=== PATIENT | male | born 1950 | race Caucasian/White ===

== ENCOUNTER 2018-11-30 09:33 | Emergency (ER) | payer MEDICARE, BC ==
--- OUTSIDE RECORDS SUMMARY | 2018-11-30 10:07 | XMS REPORT | Continuity of Care Document ---
:1950 External Reference #:[id number] Author Name Mariposa King MD Address [address] [facility] [place] [address] Care Team Providers Name Role Phone Mariposa King MD Care Team Information Pastoral Assistant Unavailable Mariposa King MD Primary Care Physician Unavailable Payers Date Identification Numbers Payment Provider Subscriber Policy Number: [id number] Medicare Juan Singleton JR PayID: [id number] [address] [place] [address] Effective: 2014 Policy Number: [id number] [facility] Juan Singleton JR Group Number: [id number] [address] [address] PayID: [id number] BARBY Boyd [id number] Effective: 2015 Policy Number: [id number] Medicare Juan Singleton JR Expires: 2018 PayID: [id number] [address] [place] [address] Advance Directives Description No Information Available Problems Active Problems Provider Date Conduction disorder of the heart Mili Rodriguez ANP Onset: 01/14/2013 Pulmonary embolism Mili Rodriguez ANP Onset: 01/14/2013 History of malignant neoplasm of tongue Mariposa King MD Onset: 08/17/2015 Chronic lymphoid leukemia in remission Mariposa King MD Onset: 08/17/2015 Hypothyroidism Mariposa King MD Onset: 08/17/2015 Hypertensive heart disease without Mariposa King MD Onset: 04/25/2016 congestive heart failure Thrombophilia due to antiphospholipid Mariposa King MD Onset: 04/25/2016 antibody Nephropathy due to secondary diabetes Mariposa King MD Onset: 04/25/2016 mellitus Pure hypercholesterolemia Mariposa King MD Onset: 04/25/2016 Nocturia Mariposa King MD Onset: 04/25/2016 Solitary nodule of lung Mariposa King MD Onset: 10/24/2016 Edema Shawn Larson M.D., Onset: 04/29/2017 [facility] Other hemorrhoids Mariposa King MD Onset: 10/23/2017 Gouty arthritis of the ankle and/or foot Mariposa King MD Onset: 11/27/2017 Bradycardia Mariposa King MD Onset: 04/28/2018 Neoplasm of uncertain behavior of skin Mariposa King MD Onset: 04/28/2018 Gout Mariposa King MD Onset: 06/27/2018 Type 2 diabetes mellitus Mariposa King MD Onset: 07/23/2018 Ulcer of heel Mariposa King MD Onset: 07/23/2018 Inactive Problems Benign essential hypertension Mili Rodriguez ANP Onset: 01/14/2013 Inactive: 04/25/2016 Dyspnea Mili Rodriguez, ANP Onset: 01/14/2013 Inactive: 04/25/2016 Preoperative cardiovascular Shawn Larson M.D., [facility] Onset: 12/27/2014 examination Inactive: 04/25/2016 Essential hypertension Mariposa King MD Onset: 08/17/2015 Inactive: 04/25/2016 Type 2 diabetes mellitus Mariposa King MD Onset: 08/17/2015 Inactive: 04/25/2016 Resolved Problems Diarrhea Mariposa King MD Onset: 09/28/2015 Resolved: 04/25/2016 Urgent desire to urinate Mariposa King MD Onset: 12/21/2015 Resolved: 04/25/2016 Malaise and fatigue Mariposa King MD Onset: 12/21/2015 Resolved: 04/25/2016 Hyperlipidemia Mili Rodriguez ANP Onset: 01/14/2013 Resolved: 04/28/2018 Malignant tumor of base of tongue Mariposa King MD Onset: 09/28/2015 Resolved: 04/28/2018 Acute bronchitis Mariposa King MD Onset: 10/24/2016 Resolved: 04/28/2018 Arthralgia of the pelvic region and thigh Mariposa King MD Onset: 2016 Resolved: 04/28/2018 Cellulitis of lower leg Mariposa King MD Onset: 10/04/2017 Resolved: 04/28/2018 Contact dermatitis Mariposa King MD Onset: 10/23/2017 Resolved: 04/28/2018 Otalgia Mariposa King MD Onset: 11/27/2017 Resolved: 04/28/2018 Primary cardiomyopathy Mili Rodriguez ANP Onset: 01/14/2013 Resolved: 04/28/2018 Family History Date Family Member(s) Observation Comments Father Non Contributory Father 91 Father due to Pancreatic Cancer () Mother due to Congestive Heart Failure () - 85 Mother Heart Disease Children 2 Siblings 5 First Sister CLL First Sister due to subarachnoid hemmorhage () Social History Type Date Description Comments Sex Unknown Education Highest level completed, 2 years of college Marital Status Lives With Home Environment Lives With and pets Diet Patient follows no dietary restrictions Pets 3 cats 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 Work Status Retired ADL's/IADL's Independent with all ADL's ADL's/IADL's Independent with all IADL's Hobbies model airplanes, model trains Hobbies Reading Hobbies Camping Tobacco Use Start: Unknown End: Quit at age 42 Unknown Cigarette Use Pack Years - 10 Smoking Status Reviewed: 11/10/18 Quit at age 42 ETOH Use Denies alcohol use Tobacco Use Start: Unknown End: Patient is a former Unknown smoker Recreational Drug Use Denies Drug Use Guns in Home No Allergies, Adverse Reactions, Alerts Active Allergies Reaction Severity Comments Date NKDA 06/08/2010 Contrast Dye 09/28/2015 Medications Active Medications SIG Qnty Indications Ordering Date Provider Allopurinol 1 by mouth 2x/day 90tabs Mariposa King, 06/27/2018 100mg Tablets Blood Glucose Test test sugars 3-4x 200units Mariposa King, 12/20/2017 daily as instructed Strips Pen [place] use for insulin pen 100units Mariposa King, 12/20/2017 32G X 4 injection once mm Misc daily Proair HFA 2 inhalations every 8.500gm J40 Mariposa King, 06/19/2017 4 hours as needed 108(90Base) mcg/Act for wheezing, sob Aerosol or persistent cough Benazepril HCL 1/2 by mouth every 90tabs Mariposa King, 10/24/2016 40mg day MD Tablets Lantus Solostar 22 units AT Bedtime 30ml Mariposa King, 12/21/2015 MD 100Unit/ML Solution Pen-Inject Lovastatin take one tablet by 90tabs Mariposa King, 20mg mouth once daily MD Tablets Glyburide 1/2 po twice a day Unknown 5mg Tablets Levothyroxine Sodium take one tablet by 90tabs Mariposa King, mouth once daily MD 137mcg Tablets Vitamin D 1 by mouth twice a Unknown (Cholecalciferol) day 2000U Capsules Lovenox 1 subcutaneous q 12 10units Unknown 100mg/ml hours Solution History Medications Sulfamethoxazole/Trimethoprim one tablet 14tabs N30.01 [place], 07/09/2018 DS twice a day Dg, - 800-160mg Tablets x 7 days 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 Colchicine 1/2 To 1 30tabs Mariposa King, 06/12/2018 0.6mg Tablets tab by MD - mouth Per 09/30/2018 Day Ciclopirox Olamine apply to 60ml Mariposa King, 04/28/2018 0.77% Suspension affected MD - 2x/day 07/09/2018 after cleansing and drying area Sulfamethoxazole/Trimethoprim 1 by mouth 20tabs Mariposa King, 2017 DS twice a day MD - Unknown 800-160mg Tablets Colcrys Mariposa King, 11/27/2017 0.6mg Tablets MD - 11/27/2017 Prednisone 2 tabs once 60tabs Mariposa King, 11/26/2017 20mg Tablets a day until MD - pain 06/12/2018 decreases, the one tab a day for 7 more days Glyburide 2 tabs 360tabs Mariposa King, 10/23/2017 5mg Tablets twice a day MD - Unknown Losartan Potassium 1 by mouth 30tabs Mariposa King, 10/23/2017 25mg Tablets every day MD - mdd 1 11/27/2017 Sulfamethoxazole/Trimethoprim 1 by mouth 20tabs L03.119 Mariposa King, DS twice a day MD - 800-160mg Tablets 10/23/2017 Cefdinir 1 by mouth 20caps J40 Mariposa King, 06/19/2017 300mg Capsules twice a day MD - 10/04/2017 Lasix 20mg 1-2 by 180tabs Mariposa King, 04/29/2017 Tablets mouth every MD - day 06/12/2018 depending on amout of edema Amoxicillin 1 by mouth 20tabs J20.9 Mariposa King, 10/24/2016 875mg Tablets twice a day MD - 10/24/2016 Amoxicillin 1 tab 30tabs J20.9 Mariposa King, 10/24/2016 500mg Tablets 3x/day MD - 04/24/2017 Diphenoxylate-Atropine 2 by mouth 120tabs Mariposa King, 09/28/2015 2.5-0.025mg Tablets up to 4 MD - times a day 12/21/2015 as needed for diarrhea.Re [facility] #: [id number] Pravastatin Sodium Take One 30tabs 272.4 Praveen Vogel, 11/06/2012 20mg Tablets Tablet By , PhD - Unknown Mouth Every Day AT Bedtime Benazepril HCL 1 by mouth Unknown 20mg Tablets every day - 10/24/2016 Lantus 18 units Unknown 100U/ML once a day - 12/21/2015 Lantus 17 units Unknown 100Unit/ML Solution qpm - 08/17/2015 Metformin HCL ER 1 by mouth Unknown 500mg Tablets ER 24HR every day - Unknown Benadryl 1 by mouth Unknown 25mg Tablets as needed - 08/17/2015 Vitamin D3 1 po qd- Unknown 1000Unit Capsules prn - 08/17/2015 Cinnamon 1 po qd Unknown 500mg Capsules - 08/17/2015 Guaifenesin 1 to 2 tabs 30tabs Unknown 200mg Tablets po q 4 to 6 - Unknown hours as needed for cough Benazepril HCL one by 90tabs Mariposa King, 40mg Tablets mouth every MD - Unknown day Januvia 1 po qd 30tabs Unknown 100mg Tablets - Unknown Fosinopril Sodium 1 po qd 90tabs Unknown 40mg Tablets - Unknown Levitra 1 po prn Unknown 20mg Tablets - Unknown Ventolin HFA prn Unknown 108(90Base) mcg/ac Aerosol - 08/17/2015 Glyburide 1 by mouth 180tabs Mariposa King, 5mg Tablets twice a day MD - 10/23/2017 Simvastatin 1 po qd 90tabs Unknown 40mg Tablets - Unknown Actos 15mg 1 po qd Unknown Tablets - Unknown Immunizations CPT Code Status Date Vaccine Lot # [id number] Given 04/25/2016 Pneumococcal Conjugate Vaccine 13 Valent For [id number] Intramuscular Use [id number] Given 10/06/2010 Tdap injection Vital Signs Date Vital Result Comment 11/10/2018 8:18am BP Systolic Sitting Left Arm 132 mmHg BP Diastolic Sitting Left Arm 82 mmHg Heart Rate 62 /min Respiratory Rate 18 /min Height 74 inches 6'2" Weight 318.00 lb BMI (Body Mass Index) 40.8 kg/m2 BSA (Body Surface Area) 2.65 m2 [place] body weight in kilograms 86 kg 10/15/2018 9:26am BP Systolic 112 mmHg BP Diastolic 55 mmHg Body Temperature 96.4 F Heart Rate 60 /min Height 74 inches 6'2" Weight 315.00 lb BMI (Body Mass Index) 40.4 kg/m2 BSA (Body Surface Area) 2.64 m2 [place] body weight in kilograms 86 kg O2 % BldC Oximetry 99 % 09/30/2018 3:57pm BP Systolic 128 mmHg BP Diastolic 82 mmHg Body Temperature 96.8 F Heart Rate 60 /min Respiratory Rate 20 /min Height 72 inches 6'0" Weight 315.00 lb BMI (Body Mass Index) 42.7 kg/m2 BSA (Body Surface Area) 2.58 m2 [place] body weight in kilograms 81 kg 07/23/2018 5:51pm BP Systolic Sitting Left Arm 130 mmHg BP Diastolic Sitting Left Arm 72 mmHg Body Temperature 97.6 F Heart Rate 66 /min Respiratory Rate 18 /min Height 72 inches 6'0" Weight 304.00 lb BMI (Body Mass Index) 41.2 kg/m2 BSA (Body Surface Area) 2.55 m2 [place] body weight in kilograms 81 kg 07/10/2018 3:12pm BP Systolic 120 mmHg BP Diastolic 71 mmHg Body Temperature 97.6 F Heart Rate 47 /min Respiratory Rate 20 /min Height 72 inches 6'0" Weight 303.00 lb BMI (Body Mass Index) 41.1 kg/m2 BSA (Body Surface Area) 2.54 m2 [place] body weight in kilograms 81 kg O2 % BldC Oximetry 100 % 07/09/2018 11:51am BP Systolic Sitting Left Arm 128 mmHg BP Diastolic Sitting Left Arm 74 mmHg Body Temperature 98.1 F Heart Rate 60 /min Respiratory Rate 18 /min Height 73 inches 6'1" Weight 307.00 lb BMI (Body Mass Index) 40.5 kg/m2 BSA (Body Surface Area) 2.58 m2 [place] body weight in kilograms 83 kg O2 % BldC Oximetry 98 % 06/27/2018 11:36am BP Systolic Sitting Resting Right Arm 124 mmHg BP Diastolic Sitting Resting Right Arm 68 mmHg Body Temperature 97.6 F Heart Rate 76 /min Respiratory Rate 18 /min Height 73 inches 6'1" Weight 306.00 lb BMI (Body Mass Index) 40.4 kg/m2 BSA (Body Surface Area) 2.58 m2 [place] body weight in kilograms 83 kg 06/12/2018 4:38pm BP Systolic 127 mmHg BP Diastolic 62 mmHg Body Temperature 97.6 F Heart Rate 47 /min Height 73 inches 6'1" Weight 304.00 lb BMI (Body Mass Index) 40.1 kg/m2 BSA (Body Surface Area) 2.57 m2 [place] body weight in kilograms 83 kg Pain Level 7 Rt Foot 04/28/2018 8:54am BP Systolic 138 mmHg BP Diastolic 78 mmHg Body Temperature 96.6 F Heart Rate 54 /min Respiratory Rate 20 /min Height 73 inches 6'1" Weight 312.00 lb BMI (Body Mass Index) 41.2 kg/m2 BSA (Body Surface Area) 2.60 m2 [place] body weight in kilograms 83 kg 01/13/2018 9:23am BP Systolic Sitting Right Arm 112 mmHg BP Diastolic Sitting Right Arm 64 mmHg Heart Rate 38 /min Respiratory Rate 16 /min Height 73 inches 6'1" Weight 309.00 lb BMI (Body Mass Index) 40.8 kg/m2 BSA (Body Surface Area) 2.59 m2 [place] body weight in kilograms 83 kg O2 % BldC Oximetry 98 % Room air 11/27/2017 9:39am BP Systolic 148 mmHg BP Diastolic 92 mmHg Body Temperature 97.2 F Heart Rate 55 /min Respiratory Rate 18 /min Height 73 inches 6'1" Weight 325.00 lb BMI (Body Mass Index) 42.9 kg/m2 BSA (Body Surface Area) 2.64 m2 [place] body weight in kilograms 83 kg O2 % BldC Oximetry 96 % 10/23/2017 8:30am BP Systolic Sitting Left Arm 128 mmHg BP Diastolic Sitting Left Arm 72 mmHg Heart Rate 72 /min Respiratory Rate 18 /min Height 73 inches 6'1" Weight 326.00 lb BMI (Body Mass Index) 43.0 kg/m2 BSA (Body Surface Area) 2.65 m2 [place] body weight in kilograms 83 kg 10/04/2017 2:27pm BP Systolic 89 mmHg BP Diastolic 54 mmHg BP Systolic Sitting Right Arm 150 mmHg BP Diastolic Sitting Right Arm 70 mmHg BP Systolic Sitting Left Arm 129 mmHg BP Diastolic Sitting Left Arm 84 mmHg Body Temperature 95.8 F Heart Rate 74 /min Respiratory Rate 17 /min Height 73 inches 6'1" Weight 334.00 lb BMI (Body Mass Index) 44.1 kg/m2 BSA (Body Surface Area) 2.68 m2 [place] body weight in kilograms 83 kg 06/19/2017 10:25am BP Systolic Sitting Right Arm 132 mmHg BP Diastolic Sitting Right Arm 70 mmHg Body Temperature 96.5 F Heart Rate 45 /min Height 73 inches 6'1" Weight 320.00 lb BMI (Body Mass Index) 42.2 kg/m2 BSA (Body Surface Area) 2.63 m2 [place] body weight in kilograms 83 kg O2 % BldC Oximetry 96 % 04/29/2017 8:35am BP Systolic Sitting Left Arm 142 mmHg BP Diastolic Sitting Left Arm 61 mmHg Heart Rate 51 /min Respiratory Rate 16 /min Height 73 inches 6'1" Weight 324.00 lb BMI (Body Mass Index) 42.7 kg/m2 BSA (Body Surface Area) 2.64 m2 [place] body weight in kilograms 83 kg 04/24/2017 8:39am BP Systolic Sitting Left Arm 118 mmHg BP Diastolic Sitting Left Arm 60 mmHg Heart Rate 62 /min Height 73 inches 6'1" Weight 320.00 lb BMI (Body Mass Index) 42.2 kg/m2 BSA (Body Surface Area) 2.63 m2 [place] body weight in kilograms 83 kg 10/24/2016 8:30am BP Systolic Sitting Right Arm 138 mmHg BP Diastolic Sitting Right Arm 60 mmHg Body Temperature 98.9 F Heart Rate 56 /min Respiratory Rate 18 /min Height 73 inches 6'1" Weight 322.00 lb BMI (Body Mass Index) 42.5 kg/m2 BSA (Body Surface Area) 2.63 m2 08/23/2016 8:42am BP Systolic Sitting Right Arm 124 mmHg BP Diastolic Sitting Right Arm 82 mmHg Heart Rate 50 /min Respiratory Rate 16 /min Height 73 inches 6'1" Weight 327.00 lb BMI (Body Mass Index) 43.1 kg/m2 BSA (Body Surface Area) 2.65 m2 04/25/2016 9:05am BP Systolic Sitting Left Arm 126 mmHg BP Diastolic Sitting Left Arm 72 mmHg Heart Rate 70 /min Respiratory Rate 22 /min Height 73 inches 6'1" Weight 316.00 lb BMI (Body Mass Index) 41.7 kg/m2 BSA (Body Surface Area) 2.61 m2 [place] body weight in kilograms 83 kg 12/21/2015 8:39am BP Systolic 115 mmHg BP Diastolic 56 mmHg BP Systolic Sitting Left Arm 116 mmHg BP Diastolic Sitting Left Arm 93 mmHg Heart Rate 61 /min Height 74 inches 6'2" Weight 314.25 lb BMI (Body Mass Index) 40.3 kg/m2 BSA (Body Surface Area) 2.63 m2 11/03/2015 8:02am BP Systolic Sitting Right Arm 134 mmHg BP Diastolic Sitting Right Arm 62 mmHg Heart Rate 46 /min Respiratory Rate 16 /min Height 74 inches 6'2" Weight 314.00 lb BMI (Body Mass Index) 40.3 kg/m2 BSA (Body Surface Area) 2.63 m2 09/28/2015 1:05pm BP Systolic Sitting Left Arm 102 mmHg BP Diastolic Sitting Left Arm 64 mmHg Body Temperature 97.3 F Heart Rate 50 /min Respiratory Rate 18 /min Height 74 inches 6'2" Weight 301.00 lb BMI (Body Mass Index) 38.6 kg/m2 BSA (Body Surface Area) 2.59 m2 08/30/2015 8:57am BP Systolic Sitting Left Arm 154 mmHg BP Diastolic Sitting Left Arm 76 mmHg Heart Rate 51 /min Respiratory Rate 16 /min Height 74 inches 6'2" Weight 310.00 lb BMI (Body Mass Index) 39.8 kg/m2 BSA (Body Surface Area) 2.62 m2 08/17/2015 11:11am BP Systolic 129 mmHg BP Diastolic 71 mmHg Heart Rate 51 /min Respiratory Rate 18 /min Weight 311.25 lb 12/27/2014 2:43pm BP Systolic Sitting Right Arm 102 mmHg BP Diastolic Sitting Right Arm 58 mmHg Heart Rate 53 /min Respiratory Rate 16 /min Height 74.75 inches 6'2.75" Weight 309.00 lb BMI (Body Mass Index) 38.9 kg/m2 BSA (Body Surface Area) 2.63 m2 01/12/2013 3:30pm BP Systolic Sitting Right Arm 116 mmHg BP Diastolic Sitting Right Arm 72 mmHg Heart Rate 48 /min Irregular Respiratory Rate 16 /min Height 74.75 inches 6'2.75" Weight 310.00 lb BMI (Body Mass Index) 39.0 kg/m2 BSA (Body Surface Area) 2.64 m2 11/06/2012 8:41am BP Systolic Sitting Left Arm 122 mmHg BP Diastolic Sitting Left Arm 68 mmHg Heart Rate 58 /min Respiratory Rate 18 /min Height 74.75 inches 6'2.75" Weight 309.00 lb BMI (Body Mass Index) 38.9 kg/m2 BSA (Body Surface Area) 2.63 m2 05/05/2012 2:52pm BP Systolic Sitting Right Arm 128 mmHg BP Diastolic Sitting Right Arm 60 mmHg Heart Rate 64 /min Respiratory Rate 18 /min Height 74.75 inches 6'2.75" Weight 320.00 lb BMI (Body Mass Index) 40.3 kg/m2 03/25/2012 9:38am BP Systolic Sitting Right Arm 128 mmHg BP Diastolic Sitting Right Arm 66 mmHg Heart Rate 53 /min Respiratory Rate 20 /min Height 74.75 inches 6'2.75" Weight 327.00 lb BMI (Body Mass Index) 41.1 kg/m2 Results Test Date Facility Test Result H/L Range Note Basic Metabolic 11/10/2018 [facility] Glucose 192 mg/dL High 74-106 1 Panel [address] [place], [place] [id number] [phone] BUN 31 mg/dL High 7-18 Creatinine 1.6 mg/dL High 0.6-1.3 Glom Filtration Rate, Estimate 46 mL/min >60 If 56 mL/min >60 2 BUN/Creat 19.3 ratio Sodium 136 mmol/L N 136-145 Potassium 4.7 mmol/L N 3.5-5.1 Chloride 107 mmol/L N 98-107 Carbon Dioxide 25 mmol/L N 21-32 Anion Gap 4 mEq/L Low 8-16 Calcium 9.4 mg/dL N 8.5-10.1 Glycohemoglobin 11/10/2018 [facility] Glycohemoglobin 7.5 % High 4.2-6.[address] (A1c) [place], [place] [id number] [phone] eAG 169 mg/dL Laboratory test 11/10/2018 [facility] Uric Acid 7.2 mg/dL N 3.5-7.[address] [place], [place] [address] [phone] Urine Dipstick 11/10/2018 [facility] Ua Nitrite - Negative Ua Urobilinogen .2 0.2 - 1.0 E.U./dL Ua Protein - Negative Ua PH 6 Low 6.5-7.5 Ua Blood - Negative Ua Specific [place] 1.020 1.010-1.030 Ua Ketones - Negative Ua Bilirubin - Negative Ua Glucose - Negative Basic Metabolic Panel 10/02/[address] [facility] [address] Glucose 151 mg/dL High 74-[address] [place], [place] [id number] [phone] BUN 33 mg/dL High 7-18 Creatinine 1.8 mg/dL High 0.6-1.3 Glom Filtration Rate, Estimate 40 mL/min >60 If 49 mL/min >60 5 BUN/Creat 18.3 ratio Sodium 140 mmol/L N 136-145 Potassium 4.6 mmol/L N 3.5-5.1 Chloride 107 mmol/L N 98-107 Carbon Dioxide 27 mmol/L N 21-32 Anion Gap 6 mEq/L Low 8-16 Calcium 9.2 mg/dL N 8.5-10.1 CBC W/Automated Diff 10/02/2018 [facility] [address] White Blood 6.3 K/uL N 3.4-10.[address] [place] [address] [phone] Red Blood Count 4.71 M/uL N 4.20-5.80 Hemoglobin 14.2 gm/dL N 12.8-17.0 Hematocrit 43.3 % N 38.0-48.0 Mean Cell Volume 91.9 fl N 80.0-96.0 Mean Corpuscular HGB 30.1 pg N 27.0-33.0 Mean Corpuscular HGB Conc 32.8 g/dL N 31.7-36.0 Platelet Count 184 K/uL N 155-360 Red Cell Distri Width SD 45.3 fl N 36-51 Red Cell Distri Width %CV 13.3 % N 11.6-15.8 Mean Platelet Volume 9.6 fl N 6.6-10.6 Neut% 43.9 % N 33.0-73.0 Lymph % 42.5 % High 20.0-42.0 [place] % 8.6 % N 0.0-10.0 Eo% 4.1 % N 0.0-6.6 Bas% 0.6 % N 0.0-1.1 Immature Grans 0.3 % N 0.0-5.0 NRBC % 0.0 /100WBC < 10/ 100 WBC Neut# 2.76 K/uL N 1.8-7.0 Lymph # 2.68 K/uL N 1.0-4.0 [place] # 0.54 K/uL N 0.0-0.8 Eos # 0.26 K/uL N 0.0-0.5 Baso # 0.04 K/uL N 0.0-0.1 Immature Grans Absolute 0.02 K/uL NRBC # 0.00 K/uL Glycohemoglobin 10/02/[address] [facility] [address] Glycohemoglobin 6.8 % High 4.2-6.3 6 A1c [address] [facility] (A1c) [place], [place] [id number] [phone] eAG 148 mg/dL Laboratory test 10/02/[address] [facility] [address] Uric Acid 7.3 mg/dL High 3.5- 7.2 finding [address] [place] [address] [phone] Urine Dipstick 09/30/2018 [facility] Ua Color yellow Yellow Ua Clarity clear Clear Ua Leuko neg Negative Ua Nitrite neg Negative Ua Urobilinogen 0.2 0.2 - 1.0 E.U./dL Ua Protein neg Negative Ua PH 6.5 6.5-7.5 Ua Blood neg Negative Ua Specific [place] 1.010 1.010-1.030 Ua Ketones neg Negative Ua Bilirubin neg Negative Ua Glucose 500 High Negative Laboratory test 07/22/2018 [facility] Uric Acid 7.5 High 3.5-7.2 [address] mg/[place] [address] [phone] Glycohemoglobin 07/22/2018 [facility] Glycohemoglobin 8.2 % High 4.2-6.3 [address] (A1c) [place] [address] [phone] eAG 189 mg/dL Basic Metabolic Panel 07/22/2018 [facility] Glucose 95 mg/dL N 74-[address] [place] [address] [phone] BUN 24 mg/dL High 7-18 Creatinine 1.6 mg/dL High 0.6-1.3 Glom Filtration Rate, Estimate 46 mL/min >60 If 56 mL/min >60 9 BUN/Creat 15.0 ratio Sodium 140 mmol/L N 136-145 Potassium 4.8 mmol/L N 3.5-5.1 Chloride 108 mmol/L High 98-107 Carbon Dioxide 28 mmol/L N 21-32 Anion Gap 4 mEq/L Low 8-16 Calcium 9.6 mg/dL N 8.5-10.1 Urine Dipstick 07/09/2018 [facility] Ua Color pink Yellow Ua Clarity cloudy Clear Ua Leuko 2+ High Negative Ua Nitrite NEGATIVE Negative Ua Urobilinogen 0.2 Low 0.2 - 1.0 E.U./dL Ua Protein 2+ High Negative Ua PH 6.5 6.5-7.5 Ua Blood Large Negative Ua Specific [place] 1.015 1.010-1.030 Ua Ketones - Negative Ua Bilirubin - Negative Ua Glucose - Negative Urine Culture 07/09/2018 [facility] [address] Urine ESCHERICHIA COLI Abnormal [address] [place] [address] [phone] Quantity > 100,000 CFU/mL 11 Ast-GN67 07/09/2018 [facility] [address] Nitrofurantoin <=[address] [place] [address] [phone] Trimethoprim/Sulfamethoxazole <=20 S Ampicillin <=2 S Cefazolin <=4 S Ampicillin/Sulbactam <=2 S Ciprofloxacin <=0.25 S Piperacillin/Tazobactam <=4 S Ceftazidime <=1 S Ceftriaxone <=1 S Cefepime <=1 S Levofloxacin <=0.12 S Imipenem <=0.25 S Gentamicin <=1 S Tobramycin <=1 S Basic Metabolic Panel 06/24/2018 [facility] Glucose 98 mg/dL N 74-106 12 [address] [place], [place] [address] [phone] BUN 22 mg/dL High 7-18 Creatinine 1.8 mg/dL High 0.6-1.3 Glom Filtration Rate, Estimate 40 mL/min >60 If 49 mL/min >60 13 BUN/Creat 12.2 ratio Sodium 136 mmol/L N 136-145 Potassium 4.9 mmol/L N 3.5-5.1 Chloride 103 mmol/L N 98-107 Carbon Dioxide 27 mmol/L N 21-32 Anion Gap 6 mEq/L Low 8-16 Calcium 9.5 mg/dL N 8.5-10.1 Glycohemoglobin 06/24/2018 [facility] Glycohemoglobin 10.1 % High 4.2-6.3 14 A1c [address] [facility] (A1c) [place], [place] [id number] [phone] eAG 243 mg/dL Laboratory test 06/24/2018 [facility] Uric Acid 8.7 mg/dL High 3.5-7.2 finding [address] [place] [address] [phone] Laboratory test 04/28/2018 [facility] Uric Acid 7.4 mg/dL High 3.5-7.2 15 finding [address] [place] [address] [phone] Prostate Specific Antigen 1.27 ng/mL < 4.0 16 Urine Dipstick 04/28/2018 [facility] Ua Color yellow Yellow Ua Clarity clear Clear Ua Leuko neg Negative Ua Nitrite neg Negative Ua Urobilinogen 0.2 0.2 - 1.0 E.U./dL Ua Protein neg Negative Ua PH 6.0 Low 6.5-7.5 Ua Blood trace High Negative Ua Specific [place] 1.010 1.010-1.030 Ua Ketones neg Negative Ua Bilirubin neg Negative Ua Glucose +1000 High Negative Glycohemoglobin 10/23/2017 [facility] Glycohemoglobin 8.1 % High 4.2-6.3 17, A1c [address] (A1c) [address] [place], [place] [id number] [phone] eAG 186 mg/dL Comprehensive Metabolic 10/23/2017 [facility] Glucose 132 mg/dL High 74-[address] [place], [place] [id number] [phone] BUN 32 mg/dL High 7-18 Creatinine 2.4 mg/dL High 0.6-1.3 Glom Filtration Rate, Estimate 29 mL/min >60 If 35 mL/min >60 19 BUN/Creat 13.3 ratio Sodium 136 mmol/L N 136-145 Potassium 4.8 mmol/L N 3.5-5.1 Chloride 102 mmol/L N 98-107 Carbon Dioxide 29 mmol/L N 21-32 Anion Gap 5 mEq/L Low 8-16 Calcium 9.4 mg/dL N 8.5-10.1 Total Protein 7.8 g/dL N 6.4-8.2 Albumin 4.2 g/dL N 3.4-5.0 Globulin 3.6 g/dL N 1.9-4.3 Alb/Glob 1.2 ratio Bilirubin,Total 0.4 mg/dL N 0.2-1.0 Sgot/Ast 25 U/L N 15-37 SGPT/Alt 26 U/L N 12-78 Alkaline Phosphatase 50 U/L N 45-117 LDL Cholesterol Profile 10/23/2017 [facility] Cholesterol 147 mg/dL <200 20 [address] [place], [place] [id number] [phone] Triglycerides 176 mg/dL High <150 21 HDL Cholesterol 35 mg/dL Low >40 22 LDL-Cholesterol 77 mg/dL < 100 23 Laboratory test 10/23/2017 [facility] Thyroid Stim 2.00 uIU/mL N 0.30-4.20 finding [address] [place] [address] [phone] Microalb/Creat 10/23/2017 [facility] Microalbumin, < 5.0 mg/L < 20.0 Ratio,Random [address] Urine [place], [place] [id number] [phone] Microalbumin/Creatinine Ratio TNP ug/mgCrt < 30.0 24 Urine Creatinine Conc 38 mg/dL PTH Prof I 10/23/2017 [facility] Calcium 9.6 mg/dL 8.6-10.[address] [place], [place] [id number] [phone] Phosphorus,Inorganic 3.4 mg/dL 2.5-4.5 Creatinine 2.17 mg/dL High 0.76-1.27 Glom Filtration Rate, Estimate 31 mL/min Low >59 25 If 35 Low >59 26 PTH,Intact 40 pg/mL 15-65 . (SEE NOTE) 27 Laboratory test 10/31/2016 [facility] Magnesium 1.9 mg/dL N 1.8-2.4 28 finding [address] [place] [id number] [phone] PTH Prof I 10/31/2016 [facility] Calcium 9.1 mg/dL 8.6-10.2 [address] [place] [address] [phone] Phosphorus,Inorganic 2.8 mg/dL 2.5-4.5 Creatinine 1.62 mg/dL High 0.76-1.27 Glom Filtration Rate, Estimate 44 mL/min Low >59 29 If 51 Low >59 30 PTH,Intact 40 pg/mL 15-65 . (SEE NOTE) 31 Microalb/Creat 10/31/2016 [facility] Microalbumin,Urine < 6.0 < 20.0 Ratio,Random [address] mg/L [place], [place] [id number] [phone] Microalbumin/Creatinine Ratio 5.2 ug/mgCrt < 30.0 Urine Creatinine Conc 115 mg/dL Glycohemoglobin 10/31/2016 [facility] Glycohemoglobin 7.9 % High 4.2-6.[address] (A1c) [place], [place] [id number] [phone] eAG 180 mg/dL Basic Metabolic Panel 10/31/2016 [facility] Glucose 156 mg/dL High 74-[address] [place] [address] [phone] BUN 25 mg/dL High 7-18 Creatinine 1.8 mg/dL High 0.6-1.3 Glom Filtration Rate, Estimate 40 mL/min >60 If 49 mL/min >60 33 BUN/Creat 13.8 ratio Sodium 140 mmol/L N 136-145 Potassium 5.1 mmol/L N 3.5-5.1 Chloride 108 mmol/L High 98-107 Carbon Dioxide 26 mmol/L N 21-32 Anion Gap 6 mEq/L Low 8-16 Calcium 9.1 mg/dL N 8.5-10.1 Laboratory test 04/25/2016 [facility] Hemoccult negative finding Comprehensive 04/25/2016 [facility] Glucose 131 mg/dL High 74-106 34 Metabolic Panel [address] [place] [address] [phone] BUN 32 mg/dL High 7-18 Creatinine 2.0 mg/dL High 0.6-1.3 Glom Filtration Rate, Estimate 36 mL/min N >60 If 43 mL/min N >60 35 BUN/Creat 16.0 ratio N Sodium 138 mmol/L N 136-145 Potassium 5.3 mmol/L High 3.5-5.1 Chloride 106 mmol/L N 98-107 Carbon Dioxide 25 mmol/L N 21-32 Anion Gap 7 mEq/L Low 8-16 Calcium 9.4 mg/dL N 8.5-10.1 Total Protein 7.6 g/dL N 6.4-8.2 Albumin 4.1 g/dL N 3.4-5.0 Globulin 3.5 g/dL N 1.9-4.3 Alb/Glob 1.2 ratio N Bilirubin,Total 0.4 mg/dL N 0.2-1.0 Sgot/Ast 22 U/L N 15-37 SGPT/Alt 28 U/L N 12-78 Alkaline Phosphatase 39 U/L Low 45-117 @[facility] Pat Id: [id number] @[facility] Req #: [id number] Is Patient Fasting? Fasting CBS W/Automated Diff 04/25/2016 [facility] White Blood 5.7 K/uL N 3.4-10.[address] [place] [address] [phone] Red Blood Count 4.24 M/uL N 4.20-5.80 Hemoglobin 13.1 gm/dL N 12.8-17.0 Hematocrit 40.1 % N 38.0-48.0 Mean Cell Volume 94.6 fl N 80.0-96.0 Mean Corpuscular HGB 30.9 pg N 27.0-33.0 Mean Corpuscular HGB Conc 32.7 g/dL N 31.7-36.0 Platelet Count 168 K/uL N 150-400 Red Cell Distri Width SD 46.2 fl N 36-51 Red Cell Distri Width %CV 13.9 % N 11.6-15.8 Mean Platelet Volume 9.6 fL N 6.6-10.6 Neut% 49.2 % N 33.0-73.0 Lymph % 37.7 % N 17.0-56.0 [place] % 10.3 % High 0.0-10.0 Eo% 2.6 % N 0.0-5.0 Bas% 0.2 % N 0.1-1.0 Neut# 2.81 K/uL N 1.8-7.0 Lymph # 2.15 K/uL N 1.8-7.0 [place] # 0.59 K/uL N 0.0-0.8 Eos # 0.15 K/uL N 0.0-0.5 Baso # 0.01 K/uL Low 0.1-0.2 @[facility] Pat Id: [id number] @[facility] Req #: [id number] Thyroid Stim 04/25/2016 [facility] Thyroid Stim 0.57 uIU/mL N 0.30-4.[address] [place] [address] [phone] @[facility] Pat Id: [id number] @[facility] Req #: [id number] Is Patient Fasting? Fasting LDL Cholesterol Profile 04/25/2016 [facility] Cholesterol 178 mg/dL N <[address] [place], [place] [id number] [phone] Triglycerides 151 mg/dL High <150 37 HDL Cholesterol 37 mg/dL Low >40 38 LDL-Cholesterol 111 mg/dL N < 100 39 @[facility] Pat Id: [id number] @[facility] Req #: [id number] Is Patient Fasting? Fasting Prostate Specific 04/25/2016 [facility] PSA (Mcleod 1.02 ng/mL N < 4.0 [address] [place]) [place] [address] [phone] @[facility] Pat Id: [id number] @[facility] Req #: [id number] Is Patient Fasting? Fasting Glycohemoglobin 04/25/2016 [facility] Glycohemoglobin 6.6 % High 4.2-6.3 [address] (A1c) [place], [place] [address] [phone] eAG 143 mg/dL N @[facility] Pat Id: [id number] @[facility] Req #: [id number] Urine Culture 12/21/2015 [facility] Urine Culture See Note [address] [place], [place] [address] [phone] Comprehensive 12/21/2015 [facility] Glucose 138 mg/dL High 74-10 Metabolic Panel [address] [place] [address] [phone] BUN 25 mg/dL High 7-18 Creatinine 1.8 mg/dL High 0.6-1.3 Glom Filtration Rate, Estimate 40 mL/min >60 If 49 mL/min >60 43 BUN/Creat 13.8 ratio Sodium 139 mmol/L 136-145 Potassium 4.9 mmol/L 3.5-5.1 Chloride 107 mmol/L 98-107 Carbon Dioxide 25 mmol/L 21-32 Anion Gap 7 mEq/L Low 8-16 Calcium 8.9 mg/dL 8.5-10.1 Total Protein 7.4 g/dL 6.4-8.2 Albumin 4.0 g/dL 3.4-5.0 Globulin 3.4 g/dL 1.9-4.3 Alb/Glob 1.2 ratio Bilirubin,Total 0.3 mg/dL 0.2-1.0 Sgot/Ast 22 U/L 15-37 SGPT/Alt 33 U/L 12-78 Alkaline Phosphatase 41 U/L Low 45-117 Glycohemoglobin A1c 12/21/2015 [facility] Glycohemoglobin 6.0 % 4.2-6.[address] (A1c) [place] [address] [phone] eAG 126 mg/dL CBC W/Automated Diff 12/21/2015 [facility] White Blood 4.8 K/uL 3.4-10.[address] [place] [address] [phone] Red Blood Count 3.99 M/uL Low 4.20-5.80 Hemoglobin 12.3 gm/dL Low 12.8-17.0 Hematocrit 37.6 % Low 38.0-48.0 Mean Cell Volume 94.2 fl 80.0-96.0 Mean Corpuscular HGB 30.8 pg 27.0-33.0 Mean Corpuscular HGB Conc 32.7 g/dL 31.7-36.0 Platelet Count 150 K/uL 150-400 Red Cell Distri Width SD 47.1 fl 36-51 Red Cell Distri Width %CV 14.1 % 11.6-15.8 Mean Platelet Volume 9.0 fL 6.6-10.6 Neut% 47.1 % 33.0-73.0 Lymph % 35.1 % 17.0-56.0 [place] % 13.4 % High 0.0-10.0 Eo% 4.2 % 0.0-5.0 Bas% 0.2 % 0.1-1.0 Neut# 2.24 K/uL 1.8-7.0 Lymph # 1.67 K/uL Low 1.8-7.0 [place] # 0.64 K/uL 0.0-0.8 Eos # 0.20 K/uL 0.0-0.5 Baso # 0.01 K/uL Low 0.1-0.2 Laboratory test 12/21/2015 [facility] Ferritin 172 ng/mL 26-388 finding [address] [place] [address] [phone] Ova & Parasite 09/29/2015 [facility] Parasite See Note 45 Comprehensive [address] [facility] [place] [address] [phone] Permanent Trichrome Stain See Note 46 Giardia by Dfa See Note 47 Cryptosporidium by Dfa See Note 48 Stool Culture 09/29/2015 [facility] Stool Culture See Note 49 [address] [place] [address] [phone] Shiga Toxin 1 Antigen See Note 50 Shiga Toxin 2 Antigen See Note 51 LDL Cholesterol Profile 09/20/2015 [facility] Cholesterol 168 mg/dL <200 52 [address] [place] [address] [phone] Triglycerides 123 mg/dL <150 53 HDL Cholesterol 36 mg/dL Low >40 54 LDL-Cholesterol 107 mg/dL < 100 55 Glycohemoglobin 09/20/2015 [facility] Glycohemoglobin 6.5 % High 4.2-6.[address] (A1c) [place] [address] [phone] eAG 140 mg/dL Laboratory test 09/20/2015 [facility] Thyroid Stim 0.91 uIU/mL 0.36-3.[address] [place] [address] [phone] 1 E11.9 M10.9 2 Note: Persistent reduction for 3 months or more in an eGFR <60 mL/min/1.73 m2 defines CKD. Patients with eGFR values >/=60 mL/min/1.73 m2 may also have CKD if evidence of persistent proteinuria is present. The original MDRD equation for estimated GFR is not valid for patients less than 18 years of age. Additional information may be found at www.kdoqi.org. 3 Elevated levels of HbA1c suggest the need for more aggressive treatment of glycemia. The [place] [employer] recommends that a primary goal of therapy should be a HbA1c of <7% and that physicians should re-evaluate the treatment regimen in patients with HbA1c values consistently >8%. 4 R10.12 E11.21 M10.9 5 Note: Persistent reduction for 3 months or more in an eGFR <60 mL/min/1.73 m2 defines CKD. Patients with eGFR values >/=60 mL/min/1.73 m2 may also have CKD if evidence of persistent proteinuria is present. The original MDRD equation for estimated GFR is not valid for patients less than 18 years of age. Additional information may be found at www.kdoqi.org. 6 Elevated levels of HbA1c suggest the need for more aggressive treatment of glycemia. The [place] [employer] recommends that a primary goal of therapy should be a HbA1c of <7% and that physicians should re-evaluate the treatment regimen in patients with HbA1c values consistently >8%. 7 E11.21 M10.9 8 Elevated levels of HbA1c suggest the need for more aggressive treatment of glycemia. The [place] [employer] recommends that a primary goal of therapy should be a HbA1c of <7% and that physicians should re-evaluate the treatment regimen in patients with HbA1c values consistently >8%. 9 Note: Persistent reduction for 3 months or more in an eGFR <60 mL/min/1.73 m2 defines CKD. Patients with eGFR values >/=60 mL/min/1.73 m2 may also have CKD if evidence of persistent proteinuria is present. The original MDRD equation for estimated GFR is not valid for patients less than 18 years of age. Additional information may be found at www.kdoqi.org. 10 ESCHERICHIA COLI 11 > 100,000 CFU/mL 12 M10.9 E11.21 13 Note: Persistent reduction for 3 months or more in an eGFR <60 mL/min/1.73 m2 defines CKD. Patients with eGFR values >/=60 mL/min/1.73 m2 may also have CKD if evidence of persistent proteinuria is present. The original MDRD equation for estimated GFR is not valid for patients less than 18 years of age. Additional information may be found at www.kdoqi.org. 14 Elevated levels of HbA1c suggest the need for more aggressive treatment of glycemia. The [place] [employer] recommends that a primary goal of therapy should be a HbA1c of <7% and that physicians should re-evaluate the treatment regimen in patients with HbA1c values consistently >8%. 15 E11.21 M10.072 Z12.5 16 THIS ASSAY IS NOT INTENDED A CANCER SCREENING TEST The concentration of PSA in a given specimen, determined with assays from different manufacturers, can vary due to differences in assay methods and reagent specificity. Values obtained from different assay methods cannot be used interchangeably. Method: Siemens Buy Auto Partsta Chemiluminescent immunoassay. 17 E11.21 I11.9 E03.9 18 Elevated levels of HbA1c suggest the need for more aggressive treatment of glycemia. The [place] [employer] recommends that a primary goal of therapy should be a HbA1c of <7% and that physicians should re-evaluate the treatment regimen in patients with HbA1c values consistently >8%. 19 Note: Persistent reduction for 3 months or more in an eGFR <60 mL/min/1.73 m2 defines CKD. Patients with eGFR values >/=60 mL/min/1.73 m2 may also have CKD if evidence of persistent proteinuria is present. The original MDRD equation for estimated GFR is not valid for patients less than 18 years of age. Additional information may be found at www.kdoqi.org. 20 Reference Guidelines*: Desirable: ........... < 200 mg/dL Borderline High: ..... 200-239 mg/dL High: ................ >=240 mg/dL * The National Cholesterol Education Program (NCEP) 21 Reference Guidelines*: Normal: ............. < 150 mg/dL Borderline High: .... 150-199 mg/dL High: ............... 200-499 mg/dL Very High: .......... > 500 mg/dL * Source: National Cholesterol Education Program (NCEP) 22 Reference Guidelines*: Low HDL: ..... < 40 mg/dL Normal: ..... 40-60 mg/dL Desirable: ... > 60 mg/dL *The National Cholesterol Education Program(NCEP) 23 Reference Guidelines*: Optimal:........... <100 mg/dL Near Optimal....... 100-129 mg/dL Borderline High.... 130-159 mg/dL High............... 160-189 mg/dL Very High.......... >=190 mg/dL * Source: National Cholesterol Education Program (NCEP) 24 Valid ratio could not be calculated due to non-numeric result. 25 INFCE Result Units: mL/min/1.73 26 INFCE Result Units: mL/min/1.73 27 Interpretation Intact PTH Calcium (pg/mL) (mg/dL) Normal 15 - 65 8.6 - 10.2 Primary Hyperparathyroidism >65 >10.2 Secondary Hyperparathyroidism >65 <10.2 Non-Parathyroid Hypercalcemia <65 >10.2 Hypoparathyroidism <15 < 8.6 Non-Parathyroid Hypocalcemia 15 - 65 < 8.6 Performed at: RN - [facility] [address] [id number] Self Contained Behavior Unit Teacher: Desiree Gonsalez MD, Phone: [phone] 28 E11.21 29 INFCE Result Units: mL/min/1.73 30 INFCE Result Units: mL/min/1.73 31 Interpretation Intact PTH Calcium (pg/mL) (mg/dL) Normal 15 - 65 8.6 - 10.2 Primary Hyperparathyroidism >65 >10.2 Secondary Hyperparathyroidism >65 <10.2 Non-Parathyroid Hypercalcemia <65 >10.2 Hypoparathyroidism <15 < 8.6 Non-Parathyroid Hypocalcemia 15 - 65 < 8.6 Performed at: RN - [facility] [address] [id number] Self Contained Behavior Unit Teacher: Desiree Gonsalez MD, Phone: [phone] 32 Elevated levels of HbA1c suggest the need for more aggressive treatment of glycemia. The [place] [employer] recommends that a primary goal of therapy should be a HbA1c of <7% and that physicians should re-evaluate the treatment regimen in patients with HbA1c values consistently >8%. 33 Note: Persistent reduction for 3 months or more in an eGFR <60 mL/min/1.73 m2 defines CKD. Patients with eGFR values >/=60 mL/min/1.73 m2 may also have CKD if evidence of persistent proteinuria is present. The original MDRD equation for estimated GFR is not valid for patients less than 18 years of age. Additional information may be found at www.kdoqi.org. 34 E11.21 I11.9 E03.9 E78.5 R35.1 35 Note: Persistent reduction for 3 months or more in an eGFR <60 mL/min/1.73 m2 defines CKD. Patients with eGFR values >/=60 mL/min/1.73 m2 may also have CKD if evidence of persistent proteinuria is present. The original MDRD equation for estimated GFR is not valid for patients less than 18 years of age. Additional information may be found at www.kdoqi.org. 36 Reference Guidelines*: Desirable: ........... < 200 mg/dL Borderline High: ..... 200-239 mg/dL High: ................ >=240 mg/dL * The National Cholesterol Education Program (NCEP) 37 Reference Guidelines*: Normal: ............. < 150 mg/dL Borderline High: .... 150-199 mg/dL High: ............... 200-499 mg/dL Very High: .......... > 500 mg/dL * Source: National Cholesterol Education Program (NCEP) 38 Reference Guidelines*: Low HDL: ..... < 40 mg/dL Normal: ..... 40-60 mg/dL Desirable: ... > 60 mg/dL *The National Cholesterol Education Program(NCEP) 39 Reference Guidelines*: Optimal:........... <100 mg/dL Near Optimal....... 100-129 mg/dL Borderline High.... 130-159 mg/dL High............... 160-189 mg/dL Very High.......... >=190 mg/dL * Source: National Cholesterol Education Program (NCEP) 40 THIS ASSAY IS NOT INTENDED A CANCER SCREENING TEST The concentration of PSA in a given specimen, determined with assays from different manufacturers, can vary due to differences in assay methods and reagent specificity. Values obtained from different assay methods cannot be used interchangeably. Method: K12 Enterpriseta Chemiluminescent immunoassay. 41 Elevated levels of HbA1c suggest the need for more aggressive treatment of glycemia. The [place] [employer] recommends that a primary goal of therapy should be a HbA1c of <7% and that physicians should re-evaluate the treatment regimen in patients with HbA1c values consistently >8%. 42 NO GROWTH: FINAL REPORT 43 Note: Persistent reduction for 3 months or more in an eGFR <60 mL/min/1.73 m2 defines CKD. Patients with eGFR values >/=60 mL/min/1.73 m2 may also have CKD if evidence of persistent proteinuria is present. The original MDRD equation for estimated GFR is not valid for patients less than 18 years of age. Additional information may be found at www.kdoqi.org. 44 Elevated levels of HbA1c suggest the need for more aggressive treatment of glycemia. The [place] [employer] recommends that a primary goal of therapy should be a HbA1c of <7% and that physicians should re-evaluate the treatment regimen in patients with HbA1c values consistently >8%. 45 NO OVA and PARASITES SEEN BY CONCENTRATE EXAM. 46 NO OVA OR PARASITES SEEN BY PERMANENT TRICHROME STAIN 47 NEGATIVE for Giardia by DFA 48 NEGATIVE for Cryptosporidium by DFA Testing Performed by: [place] [address] 49 Organism 1 ! NO ENTERIC PATHOGENS ISOLATED . ! ................................................... NOTE: ! INCLUDES TESTING FOR SALMONELLA, SHIGELLA, AEROMONAS, . ! PLESIOMONAS, CAMPYLOBACTER, AND E. COLI 0157:H7 . ! ................................................... . ! YERSINIA AND VIBRIO ARE NOT ROUTINELY SCREENED FOR AND . ! SHOULD BE REQUESTED SEPARATELY 50 SHIGA TOXIN 1 NOT DETECTED 51 SHIGA TOXIN 2 NOT DETECTED 52 Reference Guidelines*: Desirable: ........... < 200 mg/dL Borderline High: ..... 200-239 mg/dL High: ................ >=240 mg/dL * The National Cholesterol Education Program (NCEP) 53 Reference Guidelines*: Normal: ............. < 150 mg/dL Borderline High: .... 150-199 mg/dL High: ............... 200-499 mg/dL Very High: .......... > 500 mg/dL * Source: National Cholesterol Education Program (NCEP) 54 Reference Guidelines*: Low HDL: ..... < 40 mg/dL Normal: ..... 40-60 mg/dL Desirable: ... > 60 mg/dL *The National Cholesterol Education Program(NCEP) 55 Reference Guidelines*: Optimal:........... <100 mg/dL Near Optimal....... 100-129 mg/dL Borderline High.... 130-159 mg/dL High............... 160-189 mg/dL Very High.......... >=190 mg/dL * Source: National Cholesterol Education Program (NCEP) 56 Elevated levels of HbA1c suggest the need for more aggressive treatment of glycemia. The [place] [employer] recommends that a primary goal of therapy should be a HbA1c of <7% and that physicians should re-evaluate the treatment regimen in patients with HbA1c values consistently >8%. Procedures Date Code Description Status 10/15/2018 15174 Debridement Nails Any Method 6 Or More Completed 07/10/2018 91544 Debridement Nails Any Method 6 Or More Completed 08/23/2016 33071 EKG-Tracing And Report Completed 09/12/2015 39294 Echocardiogram Complete Completed 08/30/2015 41666 EKG-Tracing And Report Completed 07/08/2015 [id number] Bone Mineral Density Test Completed 12/27/2014 21619 EKG-Tracing And Report Completed 11/12/2012 74559 Holter Monitor 24HR Inter/Report Completed 06/05/2012 53940 Holter Monitor 24HR Inter/Report Completed 04/04/2012 88557 Echocardiogram Complete Completed 04/04/2012 84977 Stress Test Interpre And Report Only Completed 04/04/2012 53475 Stress Test Physician Super Only Completed 04/04/2012 42805 Stress Test Physician Super Only Completed 04/04/2012 33592 Myocardial Imaging Tomographic Multiple Study AT Rest Completed Or Stress 03/25/2012 42072 EKG-Tracing And Report Completed 03/25/2012 19517 EKG-Tracing And Report Completed 03/25/2012 98295 EKG-Tracing And Report Completed 07/08/2009 [id number] Colonoscopy Completed 05/07/2008 58920 Doppler ECHO Color Flow Mapping Completed 05/07/2008 06321 Doppler Echocardiogram Complete Completed 05/07/2008 07895 Echocariogram 2D Complete Completed 10/07/2007 71901 Remove Impacted Cerumen Completed Encounters Type Date Location Provider Dx Diagnosis Office Visit 11/10/2018 Family Medicine Mariposa King, M10.9 Gout, unspecified 8:30a Fred TENORIO MD E11.21 Type 2 diabetes mellitus with diabetic nephropathy Office Visit 09/30/2018 4:00p Family Medicine Lorie Calvillo, 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 Office Visit 07/23/2018 6:00p Family Medicine Fernando M10.9 Gout, unspecified [place] JONA Monge MD E11.21 Type 2 diabetes mellitus with diabetic nephropathy L97.421 Non-prs chr ulcer of left heel and midft lmt to brkdwn skin Office Visit 07/10/2018 3:00p Podiatry Office Sanju Pritchett, E11.9 Type 2 diabetes DPM mellitus without complications L60.3 Nail dystrophy 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, left foot Q66.51 Congenital pes planus, right foot E11.621 Type 2 diabetes mellitus with foot ulcer L97.411 Non-prs chr ulcer of right heel and midft lmt to [facility] skin Office Visit 07/09/2018 Family Shubham, N30.01 Acute cystitis 11:15a Medicine DARREN Ross with hematuria RD Office Visit 06/27/2018 Mariposa Pino MD M10.9 Gout, 10:45a Medicine Fred unspecified RD E11.21 Type 2 diabetes mellitus with diabetic nephropathy R60.9 Edema, unspecified Office Visit 06/12/2018 4:30p Mariposa Doty, M10.9 Gout , unspecified Fred TENORIO MD E11.21 Type 2 diabetes mellitus with diabetic nephropathy R60.9 Edema, unspecified Office Visit 04/28/2018 9:00a [facility] Mariposa Steven, Z00.00 Encntr for Fred TENORIO MD general adult medical exam w/o abnormal findings E11.21 Type 2 diabetes mellitus with diabetic nephropathy I11.9 Hypertensive heart disease without heart failure E03.9 Hypothyroidism, unspecified D68.61 Antiphospholipid syndrome Z12.11 Encounter for screening for malignant neoplasm of colon R91.1 Solitary pulmonary nodule C01 Malignant neoplasm of base of tongue M10.9 Gout, unspecified D48.5 Neoplasm of uncertain behavior of skin Office Visit 01/13/2018 Cardiology Shawn Larson E11.21 Type 2 diabetes 9:20a Office Sahara Belcher, FACC mellitus with diabetic nephropathy R60.0 Localized edema D68.61 Antiphospholipid syndrome I11.9 Hypertensive heart disease without heart failure E78.5 Hyperlipidemia, unspecified Office Visit 11/27/2017 9:45a Mariposa Doty, M10.[address], MD left ankle and foot E11.21 Type 2 diabetes mellitus with diabetic nephropathy H92.02 Otalgia, left ear R60.0 Localized edema Office Visit 11/13/2017 Surgical Fran, D68.61 Antiphospholipid 2:15p Office kylah Guthrie M.D. K64.8 Other hemorrhoids Office Visit 10/23/2017 8:30a Mariposa Doty, R60.0 Localized edema Fred TENORIO MD E11.21 Type 2 diabetes mellitus with diabetic nephropathy I11.9 Hypertensive heart disease without heart failure E78.5 Hyperlipidemia, unspecified E03.9 Hypothyroidism, unspecified K64.8 Other hemorrhoids L30.9 Dermatitis, unspecified Office Visit 10/04/2017 2:30p [facility] Medicine Mariposa King, L03.119 Cellulitis of Fred TENORIO MD unspecified part of limb R60.0 Localized edema Office Visit 06/19/2017 10:15a [facility] Medicine Mariposa King, J40 Bronchitis, not Fred TENORIO MD specified as acute or chronic E11.21 Type 2 diabetes mellitus with diabetic nephropathy I11.9 Hypertensive heart disease without heart failure Office Visit 04/29/2017 8:40a Cardiology Office Shawn Larson R06.02 Shortness of Sahara Belcher, FACC breath R00.1 Bradycardia, unspecified R60.0 Localized edema I26.99 Other pulmonary embolism without acute cor pulmonale Office Visit 04/24/2017 8:30a [facility] Medicine Mariposa King, R06.02 Shortness of Fred TENORIO MD breath M25.552 Pain in left hip E11.21 Type 2 diabetes mellitus with diabetic nephropathy I11.9 Hypertensive heart disease without heart failure I42.9 Cardiomyopathy, unspecified Office Visit 10/24/2016 8:30a 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 I11.9 Hypertensive heart disease without heart failure I26.99 Other pulmonary embolism without acute cor pulmonale I42.9 Cardiomyopathy, unspecified R91.1 Solitary pulmonary nodule Office Visit 08/23/2016 8:20a Cardiology Office Shawn Larson R06.02 Shortness of Sahara Belcher, FACC breath I42.9 Cardiomyopathy, unspecified I26.99 Other pulmonary embolism without acute cor pulmonale Office Visit 12/21/2015 8:30a Family Mariposa Steven, R39.15 Urgency of Fred TENORIO MD urination 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 R53.83 Other fatigue Office Visit 11/03/2015 Cardiology Marsha I42.9 Cardiomyopathy, 8:00a Office Shawn Belcher M.D., unspecified FACC E78.5 Hyperlipidemia, unspecified 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 I26.99 Other pulmonary embolism without acute cor pulmonale Office Visit 09/28/2015 1:00p Family Medicine Mariposa King, R19.7 Diarrhea, Fred TENORIO MD unspecified I10 Essential (primary) hypertension 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 Office Visit 08/30/2015 Cardiology Mili Rodriguez I42.9 Cardiomyopathy, 8:30a Office A., ANP unspecified E78.5 Hyperlipidemia, unspecified I10 Essential (primary) hypertension I26.99 Other pulmonary embolism without acute cor pulmonale R00.1 Bradycardia, unspecified Office Visit 08/17/2015 11:00a Family Fernando E78.5 Hyperlipidemia, Medicine Fred Monge MD unspecified RD I10 Essential (primary) hypertension E11.21 Type 2 diabetes mellitus with diabetic nephropathy Z85.810 Personal history of malignant neoplasm of tongue 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 Chronic lymphocytic leukemia of B-cell type in remission E03.9 Hypothyroidism, unspecified I42.9 Cardiomyopathy, unspecified I26.99 Other pulmonary embolism without acute cor pulmonale Office Visit 12/27/2014 Cardiology Shawn Larson 425.4 Cardiomyopathy 2:20p Office Sahara Belcher, [facility] Other Prim V72.81 Examination Preoperative Cardiovascular 401.1 Hypertension Benign 415.19 Pulmonary Embolism And Infarction Other Office Visit 01/12/2013 3:30p Cardiology Office Mili Rodriguez 427.89 Cardiac A., ANP Dysrhythmia Other 272.4 Hyperlipidemia Other Unspec 425.4 Cardiomyopathy Other Prim 401.1 Hypertension Benign 415.19 Pulmonary Embolism And Infarction Other 786.05 Shortness Of Breath Office Visit 11/06/2012 8:30a Cardiology Office Mili Rodriguez 427.89 Cardiac A., ANP Dysrhythmia Other 272.4 Hyperlipidemia Other Unspec 425.4 Cardiomyopathy Other Prim 401.1 Hypertension Benign 786.05 Shortness Of Breath Office Visit 05/05/2012 2:40p Cardiology Office Praveen Vogel 425.4 Cardiomyopathy Collins Jose MD, PhD Prim 401.1 Hypertension Benign 786.05 Shortness Of Breath 427.89 Cardiac Dysrhythmia Other Office Visit 03/25/2012 9:30a Cardiology Office Makayla Valdes 786.05 Shortness Of Simonetta, MSN, Breath [employer] 415.19 Pulmonary Embolism And Infarction Other 401.1 Hypertension Benign 250.00 Diabetes Mellitus W/O Compl Type II Or Unspec Controlled 496 COPD Airway Obstruction Chronic Not Class Elsewhere Office Visit 05/04/2008 2:00p Vega Kaiser MD 786.09 Dyspnea & Respiratory Abnormalities Other 250.02 Diabetes Mellitus W/O Compl Type II Or Unspec Type Uncontrol 789.00 Pain Abdominal Unspec Site Office Visit 03/23/2008 1:15p Vega Kaiser MD 250.02 Diabetes Mellitus W/O Compl Type II Or Unspec Type Uncontrol Office Visit 10/07/2007 3:00p Vega Kaiser MD 250.02 Diabetes Mellitus W/O Compl Type II Or Unspec Type Uncontrol 465.9 URI Upper Respiratory Infections Acute Unspec Sites 380.4 Impacted Cerumen Office Visit 04/22/2007 2:30p Vega Kaiser MD 389.9 Hearing Loss Unspec 401.1 Hypertension Benign 250.00 Diabetes Mellitus W/O Compl Type II Or Unspec Controlled Plan of Treatment Future Appointment(s):04/06/2019 10:15 am - Mariposa King MD at [facility] RD01/14/2019 8:00 am - Sanju Pritchett DPM at Podiatry [id number] - Mariposa King, MDM10.9 Gout, unspecifiedComments:last uric acid was 7.3;increase allopurinol to 2x/dayE11.21 Type 2 diabetes mellitus with diabetic nephropathyComments:check aic, kidney function again;cont. on same doses of meds ; check glucose before supper;increase exercise;Follow up:4 mo
[2018-11-30 10:21] VITALS: BP 116/53
--- NOTE | 2018-11-30 10:52 | UC ---
Throat Pain/Nasal Mark HPI - HPI Summary HPI Summary: 67 male with sinus pressure and pain x about a week and a half Onset after nasal pharyngeal intubation feverish had bloody nasal discharge yesterday (on lovenox) - History of Current Complaint Chief Complaint: UCGeneralIllness Stated Complaint: SINUSES Time Seen by Provider: 11/30/18 10:28 Hx Obtained From: Patient Onset/Duration: Gradual Onset, Lasting Days Severity: Mild Pain Intensity: 3 Pain Scale Used: 0-10 Numeric Associated Signs & Symptoms: Positive: Sinus Discomfort, Nasal Discharge Related History: Prior ENT Surgery - Epiglottits Risk Factors Epiglottis Risk Factors: Negative - Allergies/Home Medications Allergies/Adverse Reactions: Allergies Allergy/AdvReac Type Severity Reaction Status Date / Time Iodinated Contrast- Oral and Allergy Hives Verified 11/30/18 10:09 IV Dye Home Medications: Home Medications Allopurinol TAB* [Zyloprim 100 MG TAB*] 100 mg PO BID 11/30/18 [History Confirmed 11/30/18] PMH/Surg Hx/FS Hx/Imm Hx Previously Healthy: Yes Endocrine History: Diabetes, Dyslipidemia Cardiovascular History: Hypertension, Deep Vein Thrombosis Respiratory History: Pulmonary Embolism Cancer History: Other Other Cancer History: CLL and tongue CA - Surgical History Surgical History: Yes Surgery Procedure, Year, and Place: LISA FILTER, SKIN GRAFT-LEFT LEG, - Social History Alcohol Use: Rare Substance Use Type: None Smoking Status (MU): Former Smoker Type: Cigarettes Household Exposure Type: Cigarettes - Immunization History Most Recent Influenza Vaccination: Not the season Review of Systems All Other Systems Reviewed And Are Negative: Yes Constitutional: Positive: Fever, Fatigue Eyes: Positive: Negative ENT: Positive: Dental Pain, Nasal Discharge, Sinus Congestion, Sinus Pain/ Tenderness Respiratory: Positive: Cough Cardiovascular: Positive: Negative Gastrointestinal: Positive: Negative Genitourinary: Positive: Negative Motor: Positive: Negative Neurovascular: Positive: Negative Musculoskeletal: Positive: Edema - chronic Neurological: Positive: Negative Psychological: Positive: Negative Physical Exam Triage Information Reviewed: Yes Appearance: Well-Appearing, Well-Nourished - BMI 40 Vital Signs: Initial Vital Signs Temp 98.9 F 11/30/18 10:13 Pulse 67 11/30/18 10:13 Resp 18 11/30/18 10:13 BP 116/53 11/30/18 10:13 Pulse Ox 98 11/30/18 10:13 Eyes: Positive: Conjunctiva Clear ENT: Positive: Hearing grossly normal, Nasal congestion, Sinus tenderness - Rmax >Lmax. Negative: Nasal drainage Dental Exam: Normal Neck: Positive: Supple, Nontender, No Lymphadenopathy Respiratory: Positive: Lungs clear, Normal breath sounds, No respiratory distress, No accessory muscle use Cardiovascular: Positive: RRR, No Murmur Musculoskeletal: Positive: Edema @ - pre tibial Neurological: Positive: Alert Psychological Exam: Normal Skin Exam: Normal Throat Pain/Nasal Course/Dx - Differential Dx/Diagnosis Provider Diagnosis: Acute sinusitis Discharge - Sign-Out/Discharge Documenting (check all that apply): Patient Departure All imaging exams completed and their final reports reviewed: No Studies - Discharge Plan Condition: Stable Disposition: HOME Prescriptions: Amoxicillin/Clavulanate TAB* [Augmentin TAB 875*] 875 mg PO BID #14 tab Patient Education Materials: Warm Compress or Soak (ED), Sinusitis (ED) Referrals: Mariposa King MD [Primary Care Provider] - As Soon As Possible (follow up later this week if not improved) - Billing Disposition and Condition Condition: STABLE Disposition: Home
== END 2018-11-30 11:01 | disposition home or self-care (01) ==
LOC: UCCORT 09:33
DX: J01.90 Acute sinusitis, unspecified (principal); E11.9 Type 2 diabetes mellitus without complications; I10 Essential (primary) hypertension; Z87.891 Personal history of nicotine dependence; Z91.041 Radiographic dye allergy status
CPT/HCPCS: 99202; G0463